=== PATIENT | female | born 2000 | race Two or more races ===

== ENCOUNTER 2020-06-23 08:04 | Inpatient (IN) | payer OTHER ==
[2020-06-23] MEDS ORDERED: DEXTROSE 5%-LACTATED RINGERS 500 ML IV ONE (10:15)
[2020-06-23] MEDS: DEXTROSE 5%-LACTATED RINGERS 500 ML IV SCH (10:45)
[2020-06-23 11:01] LABS: EPI CELLS >36 /uL (0-25.1); HYALINE CASTS 4 /uL (0-3.1); PH,URINE 6.5 (5.0-8.0); URINE APPEARANCE CLOUDY; URINE BACTERIA 62 /uL (0-1359); URINE BILIRUBIN NEGATIVE (NEGATIVE); URINE COLOR YELLOW; URINE GLUCOSE (UA) NEGATIVE (NEGATIVE); URINE KETONE NEGATIVE (NEGATIVE); URINE LEUK ESTERASE TRACE (NEGATIVE); URINE NITRITE NEGATIVE (NEGATIVE); URINE PROTEIN 3+ (NEGATIVE); URINE RBC 116 /uL (0-23.9); URINE UROBILINOGEN 0.2 mg/dL (0.2-1.0); URINE WBC 393 /uL (0-25.8)
[2020-06-23] MEDS ORDERED: CEFTRIAXONE 2 GM in DEXTROSE 5%-WATER 100 ML IVPB ONE (11:45)
[2020-06-23 12:32] VITALS: BMI 28.1
[2020-06-23 13:29] LABS: BASO % 0.3 % (0-2.0); EOS % 0.4 % (0-4.5); HEMOGLOBIN 10.6 GM/dL (10.7-15.3); LYMPH % 13.7 % (8-40); MCH 24.7 pg (25.7-33.7); MCHC 33.1 g/dl (32.0-36.0); MEAN CELL VOLUME 74.7 fl (80-96); MEAN PLT VOLUME 9.6 fl (7.5-11.1); MONO % 5.7 % (3.8-10.2); NEUT % 79.9 % (42.8-82.8); PLATELET COUNT 166 K/MM3 (134-434); RBC 4.28 M/mm3 (3.60-5.2); RDW 18.6 % (11.6-15.6); WHITE BLOOD COUNT 8.7 K/mm3 (4.0-10.0)
[2020-06-23 13:38] LABS: INR 0.97 (0.83-1.09); PROTHROMBIN TIME (PATIENT) 11.4 SEC (9.7-13.0)
[2020-06-23 13:41] LABS: ACTIVATED PTT 26.7 SECONDS (25.2-36.5)
[2020-06-23 13:53] LABS: BLOOD UREA NITROGEN 6.6 mg/dL (7-18); CALCIUM 8.4 mg/dL (8.5-10.1); CREATININE 0.7 mg/dL (0.55-1.3); POTASSIUM 3.9 mmol/L (3.5-5.1)
--- NOTE | 2020-06-23 15:24 | HP ---
Past Medical History - Primary Care Physician PCP:: Bubba Beach - Admission Chief Complaint: Lower abdominal and flank pain of a day duration. Frequency, pain and burning during urination of 2 day duration History of Present Illness: 19 yo , KIERA 07/16/20, EGA 36 + weeks with above complaints History of recurrent UTI, on macrobid prophylaxis and sonographic evidence of bilateral hydronephrosis She was for a urologic evaluation today, History Source: Patient Limitations to Obtaining History: No Limitations - Past Medical History Renal/: Yes: UTI ...: 1 ...Para: 0 ...Term: 0 ...: 0 ...Spon : 0 ...Induced : 0 ...Living Children: 0 ...Multiple Gestation: 0 ...LMP: 10/10/19 ... Weeks Gestation by Dates: 36.5 ...EDC by Dates: 07/16/20 - Past Surgical History Hx Myomectomy: No Hx Transabdominal Cerclage: No - Smoking History Smoking history: Never smoked - Alcohol/Substance Use Hx Alcohol Use: No History of Substance Use: reports: None - Social History Usual Living Arrangement: Yes: With Significant Other Do you think of yourself as: Straight/Heterosexual History of Recent Travel: No Home Medications - Allergies Allergies/Adverse Reactions: Allergies Allergy/AdvReac Type Severity Reaction Status Date / Time No Known Allergies Allergy Verified 06/23/20 08:55 - Home Medications Home Medications: Ambulatory Orders Ferrous Sulfate [Iron] 325 mg PO BID 06/23/20 Nitrofurantoin Monohyd/M-Cryst [Macrobid -] 1 tab PO DAILY 06/23/20 Vitamins (Sjr) - 1 tab PO DAILY 06/23/20 Family Medical History Family Hx Renal Disease: Father Review of Systems - Review of Systems Constitutional: reports: No Symptoms Eyes: reports: No Symptoms HENT: reports: No Symptoms Neck: reports: No Symptoms Cardiovascular: reports: No Symptoms Respiratory: reports: No Symptoms Gastrointestinal: reports: No Symptoms Genitourinary: reports: Flank Pain, Frequency, Pain Breasts: reports: No Symptoms Reported Musculoskeletal: reports: No Symptoms Integumentary: reports: No Symptoms Neurological: reports: No Symptoms Endocrine: reports: No Symptoms Hematology/Lymphatic: reports: No Symptoms Psychiatric: reports: No Symptoms Physical Exam - Maternity Vital Signs: Vital Signs Temperature 98.5 F 06/23/20 12:20 Pulse Rate 96 H 06/23/20 12:20 Respiratory Rate 17 06/23/20 12:20 Blood Pressure 119/80 06/23/20 12:20 O2 Sat by Pulse Oximetry (%) Constitutional: Yes: Well Nourished Eyes: Yes: WNL HENT: Yes: WNL Neck: Yes: WNL Cardiovascular: Yes: WNL Lungs: Clear to auscultation - Abdominal Exam/OB Fundal Height: 36 Number of Fetuses: Single Presentation: Breech Contractions: Yes Regularity: Irritability Intensity: Unaware Monitor Mode: External Heart Rate (range): 140 Heart Rate Location: [facility] Category: I Accelerations: Uniform Decelerations: None - Vaginal Exam/OB Vaginal Bleeding: No Speculum Exam: No Dilatation (cm): 0 Effacement (%): 0 Amniotic Membrane Status: Intact Presentation: Full/Complete Breech Station: -3 - Physical Exam Musculoskeletal: Yes: WNL Extremities: Yes: WNL Edema: No Integumentary: Yes: WNL ...Motor Strength: WNL Psychiatric: Yes: WNL - Labs Lab Results: CBC, BMP 06/23/20 13:09 06/23/20 13:09 Hemorrhage Risk Assessment - Risk Factors Medium Risk Factors: Yes: None High Risk Factors: Yes: None Risk Score: 1 Risk Level: Medium Risk Problem List - Problems (1) 36 weeks gestation of Code(s): Z3A.36 - 36 WEEKS GESTATION OF (2) Complicated UTI (urinary tract infection) Code(s): N39.0 - URINARY TRACT INFECTION, SITE NOT SPECIFIED (3) UTI (urinary tract infection) in in third trimester Code(s): O23.43 - UNSP INFCT OF URINARY TRACT IN , THIRD TRIMESTER Assessment/Plan Late gestation with complicated UTI Admit to L and D for management Will transfer to Antepartum floor when stabilized.
[2020-06-23] MEDS ORDERED: SODIUM CHLORIDE 1,000 ML IV SCH (17:00)
[2020-06-23] MEDS ORDERED: ACETAMINOPHEN 325 MG TABLET (FP) PO PRN (17:33)
[2020-06-23] MEDS: PRENATAL VITAMINS W/ FOLIC ACID TABLET (FP) PO SCH (18:22)
[2020-06-24] MEDS: DEXTROSE 5%-LACTATED RINGERS 500 ML IV SCH ×2 (04:45→15:30)
[2020-06-24 08:37] LABS: BILIRUBIN,TOTAL 0.3 mg/dL (0.2-1); BLOOD UREA NITROGEN 6.7 mg/dL (7-18); CALCIUM 8.6 mg/dL (8.5-10.1); CREATININE 0.7 mg/dL (0.55-1.3); POTASSIUM 3.9 mmol/L (3.5-5.1); TOT PROT 6.2 g/dl (6.4-8.2)
[2020-06-24] MEDS ORDERED: CEFTRIAXONE 1 GM in DEXTROSE 5%-WATER - 50 ML IVPB SCH (10:00)
--- NOTE | 2020-06-24 10:03 | PN ---
Progress Note (short form) - Note Progress Note: patient seen this am, asked to modify frequency of antibiotic by primary manager ob
[2020-06-24] MEDS ORDERED: cefTRIAXone SODIUM 1 GM VIAL ONE (10:38)
[2020-06-24] MEDS ORDERED: DEXTROSE 5%-WATER - 50 ML IVPB ONE (10:39)
[2020-06-24] MEDS: PRENATAL VITAMINS W/ FOLIC ACID TABLET (FP) PO SCH (10:47)
[2020-06-24] MEDS: CEFTRIAXONE 1 GM in DEXTROSE 5%-WATER - 50 ML IVPB SCH (10:51)
--- NOTE | 2020-06-24 12:39 | CON.GU ---
Consult Consult Specialty:: Referred by:: Yong Reason for Consultation:: complicated UTI - History of Present Illness Chief Complaint: flank and abd pain, dysuria, ur frequency History of Present Illness: 19 yo , KIERA 07/16/20, EGA 36 + weeks p/w dysuria, frequency, flank and a lower abd pain. History of recurrent UTI, on macrobid prophylaxis and sonographic evidence of bilateral hydronephrosis She was for a urologic evaluation today - History Source History Provided By: Patient, Medical Record Limitations to Obtaining History: No Limitations - Past Medical History Renal/: Yes: UTI - Alcohol/Substance Use Hx Alcohol Use: No History of Substance Use: reports: None - Smoking History Smoking history: Never smoked - Social History History of Recent Travel: No Home Medications - Allergies Allergies/Adverse Reactions: Allergies Allergy/AdvReac Type Severity Reaction Status Date / Time No Known Allergies Allergy Verified 06/23/20 08:55 - Home Medications Home Medications: Ambulatory Orders Ferrous Sulfate [Iron] 325 mg PO BID 06/23/20 Nitrofurantoin Monohyd/M-Cryst [Macrobid -] 1 tab PO DAILY 06/23/20 Vitamins (Sjr) - 1 tab PO DAILY 06/23/20 Family Medical History Family History: Denies Family Hx Renal Disease: Father Physical Exam- Vital Signs: Vital Signs Temperature 98.1 F 06/24/20 04:53 Pulse Rate 78 06/24/20 04:53 Respiratory Rate 17 06/24/20 04:53 Blood Pressure 120/72 06/24/20 04:53 O2 Sat by Pulse Oximetry (%) 97 06/24/20 04:53 Constitutional: Yes: Well Nourished, No Distress, Calm Gastrointestinal: Yes: WNL, Normal Bowel Sounds, Soft Renal/: Yes: WNL. No: Bladder Distention, CVA Tenderness - Left, CVA Tenderness - Right, [place] Present, Hematuria Kidneys: Yes: Flank Pain Left, FLank Pain Right Labs: CBC, BMP 06/23/20 13:09 06/24/20 06:53 Imaging - Results Ultrasound: Report Reviewed Problem List - Problems (1) Hydronephrosis Code(s): N13.30 - UNSPECIFIED HYDRONEPHROSIS Qualifiers: Hydronephrosis type: other Qualified Code(s): N13.39 - Other hydronephrosis (2) 36 weeks gestation of Code(s): Z3A.36 - 36 WEEKS GESTATION OF (3) Complicated UTI (urinary tract infection) Assessment/Plan: ur cx, cont rocephin, await urine cx, change to PO Code(s): N39.0 - URINARY TRACT INFECTION, SITE NOT SPECIFIED (4) UTI (urinary tract infection) in in third trimester Code(s): O23.43 - UNSP INFCT OF URINARY TRACT IN , THIRD TRIMESTER
--- NOTE | 2020-06-24 13:35 | CON.NEP ---
Consult Consult Specialty:: Nephrology Referred by:: OB Reason for Consultation:: Hydronephrosis - History of Present Illness Chief Complaint: Dysuria History of Present Illness: This is a 19 year old woman with no significant past medical history currently at 37 weeks gestation who presented with symptomatic urinary tract infection and found to have bilateral hydronephrosis. Seen and examined at the bedside. She reports having 2 urinary tract infections throughout her . One was symptomatic, the other was asymptomatic. She denies any history of kidney stones. She currently has no flank pain. She is making urine. No leg swelling. - History Source History Provided By: Patient Limitations to Obtaining History: No Limitations - Past Medical History Renal/: Yes: UTI - Alcohol/Substance Use Hx Alcohol Use: No History of Substance Use: reports: None - Smoking History Smoking history: Never smoked - Social History History of Recent Travel: No Home Medications - Allergies Allergies/Adverse Reactions: Allergies Allergy/AdvReac Type Severity Reaction Status Date / Time No Known Allergies Allergy Verified 06/23/20 08:55 - Home Medications Home Medications: Ambulatory Orders Ferrous Sulfate [Iron] 325 mg PO BID 06/23/20 Nitrofurantoin Monohyd/M-Cryst [Macrobid -] 1 tab PO DAILY 06/23/20 Vitamins (Sjr) - 1 tab PO DAILY 06/23/20 Family Medical History Family History: Denies Family Hx Renal Disease: Father Review of Systems - Review of Systems Constitutional: reports: No Symptoms Eyes: reports: No Symptoms HENT: reports: No Symptoms Neck: reports: No Symptoms Cardiovascular: reports: No Symptoms Respiratory: reports: No Symptoms Gastrointestinal: reports: No Symptoms Genitourinary: reports: Dysuria Musculoskeletal: reports: No Symptoms Integumentary: reports: No Symptoms Neurological: reports: No Symptoms Nephrology Consult - Height Height: 5 ft 7 in - Weight Weight: 81.647 kg - BMI Body Mass Index (BMI): 28.1 - Lab Results CBC,BMP: CBC, BMP 06/23/20 13:09 06/24/20 06:53 Anion Gap: Anion Gap Anion Gap 7 MMOL/L (8-16) L 06/24/20 06:53 - Imaging Ultrasound: Report Reviewed - Physical Examination Vital Signs: Vital Signs Temperature 98.1 F 06/24/20 04:53 Pulse Rate 78 06/24/20 04:53 Respiratory Rate 17 06/24/20 04:53 Blood Pressure 120/72 06/24/20 04:53 O2 Sat by Pulse Oximetry (%) 97 06/24/20 04:53 Constitutional: Yes: No Distress, Calm HENT: Yes: Atraumatic Neck: Yes: Supple Cardiovascular: Yes: Regular Rate and Rhythm Respiratory: Yes: Regular Gastrointestinal: Yes: Soft Extremities: No: Cold, Cool, Cyanosis Edema: No Neurological: Yes: Alert Assessment/Plan 19 year old woman with no significant past medical history currently at 37 weeks gestation who presented with symptomatic urinary tract infection and found to have bilateral hydronephrosis. 1. Bilateral hydronephrosis/Physiologic hydronephrosis of kidney 2. Symptomatic urinary tract infection 3. 37 weeks gestation Renal function is within normal limits indicating that there is no functional obstruction. Unlikely she will require intervention at this time. Urology consulted, input appreciated. Would expect hydronephrosis to resolve after delivery. Continue empiric antibiotics as per OB for UTI/Cystitis. Follow up cultures and convert to oral antibiotics when cultures are resulted. OB follow up. Discharge planning as per OB> Thank you Balwinder Cosme DO
--- NOTE | 2020-06-24 18:25 | PN ---
Progress Note (short form) - Note Progress Note: Patient transferred from [facility] for observation In no acute distress Back pain improved per patient low back and lower abdominal pain 2/10, No abdominal pain Vs wnl Abdomen gravid, non tender FHR- 140, moderate variability, positive accelerations, no decelerations, cat1 [place]- occasional VE- closed/long posterior, no active bleeding,very minimal amount of blood on gloves, A/P- IUP@ 36w6d, breech presentation, complicated UTI continue observation Regular diet for dinner will transfer to maternity
[2020-06-24 19:06] LABS: 24 HR URINE CREATININE 1643.2 mg/24hr (600-1800)
[2020-06-25] MEDS: DEXTROSE 5%-LACTATED RINGERS 500 ML IV SCH (05:51)
[2020-06-25] MEDS ORDERED: cefTRIAXone SODIUM 1 GM VIAL ONE (09:12)
[2020-06-25] MEDS ORDERED: DEXTROSE 5%-WATER - 50 ML IVPB ONE (09:12)
[2020-06-25] MEDS: PRENATAL VITAMINS W/ FOLIC ACID TABLET (FP) PO SCH (09:40)
[2020-06-25] MEDS: CEFTRIAXONE 1 GM in DEXTROSE 5%-WATER - 50 ML IVPB SCH (09:40)
--- NOTE | 2020-06-25 11:19 | PD.OB.PROG ---
Past Medical History - Primary Care Physician PCP:: Bubba Beach Documenting Provider Type: Laborist - Admission Chief Complaint: called by PMD re this term antepartum pt who had routine nst today w uc's noted on it. asked to see her and do ve. hx: admitted for uti. has had uc's on nsts since admission. cat 1 tracing. History of Present Illness: patient states feels mild cramps past few days. dysuria improving. no other complaints at this time. History Source: Patient - Nursing Documentation Maternal Triage Index: Maternal Triage Index ( Priority 4, Non-urgent MFTI) Maternal Triage Index ( Priority 4, Non-urgent MFTI) Nursing Documentation Reviewed: Yes - Past Medical History ...: 1 ...Para: 0 ...Term: 0 ...: 0 ...Spon : 0 ...Induced : 0 ...Living Children: 0 ...Multiple Gestation: 0 ...LMP: 10/10/19 ... Weeks Gestation by Dates: 36.5 ...EDC by Dates: 07/16/20 - Smoking History Smoking history: Never smoked - Alcohol/Substance Use Hx Alcohol Use: No History of Substance Use: reports: None - Social History History of Recent Travel: No Physical Exam - Obstetrical Vital Signs: Vital Signs Temperature 98.7 F 06/25/20 06:00 Pulse Rate 73 06/25/20 06:00 Respiratory Rate 18 06/25/20 06:00 Blood Pressure 112/68 06/25/20 06:00 O2 Sat by Pulse Oximetry (%) 98 06/24/20 22:00 - Labs Lab Results: CBC, BMP 06/23/20 13:09 06/24/20 06:53 Assessment/Plan P0 iup at term w uti uc's noted on nst prior nst similar cervical exam l/c/p no change abd: soft, nt, d. gravid case d/w Dr. Beach requests iv fluid bolus at this time will come to see pt. further mgmt per pmd.
--- NOTE | 2020-06-25 20:19 | PN ---
Progress Note (short form) - Note Progress Note: Patient comfortable in bed. No complaints today VSS, afebrile EFM - Baseline 140/min, moderate variability, accelerations, no decelerations [place] - irregular Pelvic - closed/long/posterior Plan - Early term gestation admitted with complicated UTI and bilateral hydronephrosis Urine culture showed no growth Renal sonogram excluded any calculi and confirmed the hydronephrosis Patient was evaluated by programming engineer and urologist and cleared to be discharged. Discharge home on the macrobid prophylaxis and to follow up at clinic on 06/27/20. Labor precautions given Problem List - Problems (1) 36 weeks gestation of Code(s): Z3A.36 - 36 WEEKS GESTATION OF (2) Complicated UTI (urinary tract infection) Code(s): N39.0 - URINARY TRACT INFECTION, SITE NOT SPECIFIED (3) UTI (urinary tract infection) in in third trimester Code(s): O23.43 - UNSP INFCT OF URINARY TRACT IN , THIRD TRIMESTER
[2020-06-26 09:20] VITALS: BP 132/84; PULSE 75; TEMP 98.8
== END 2020-06-26 09:05 | disposition home or self-care (01) | DRG 566 ==
LOC: JDEL 08:04 → JLDR 11:20 → J3W 15:36 → JLDR 06-24 15:23 → J3W 06-24 21:40
PROVIDERS: ADMIT Obstetrics & Gynecology; ATTEND Obstetrics & Gynecology
DX: O23.43 Unspecified infection of urinary tract in pregnancy, third trimester (principal); N13.30 Unspecified hydronephrosis; Z87.440 Personal history of urinary (tract) infections; Z3A.36 36 weeks gestation of pregnancy
CPT/HCPCS: 36415; 76775-TC; 80048; 80053; 81003; 82575; 84156; 85025; 85610; 85730; 86780; 86850; 86900; 86901; 87086; U0003

== ENCOUNTER 2020-07-18 09:23 | Inpatient (IN) | payer OTHER ==
[2020-07-18] MEDS ORDERED: AMPICILLIN SODIUM 2 GM VIAL ONE (10:04)
[2020-07-18] MEDS ORDERED: BUTORPHANOL TARTRATE 2 MG/ML VIAL IVPB ONE (10:15)
[2020-07-18] MEDS ORDERED: AMPICILLIN - 2 GM in SODIUM CHLORIDE 100 ML IVPB ONE (10:15)
[2020-07-18] MEDS: ELECTROLYTE-148 SOLN 1,000 ML IV SCH (10:15)
[2020-07-18] MEDS ORDERED: PROMETHAZINE HCL 25 MG/1 ML VIAL IVPB ONE (10:15)
[2020-07-18] MEDS ORDERED: BUTORPHANOL TARTRATE 2 MG/ML VIAL ONE (10:32)
[2020-07-18] MEDS ORDERED: PROMETHAZINE HCL 25 MG/1 ML VIAL ONE (10:32)
[2020-07-18 10:46] VITALS: BMI 30.5
[2020-07-18 11:49] LABS: BASO % 0.5 % (0-2.0); EOS % 0.1 % (0-4.5); HEMATOCRIT 37.9 % (32.4-45.2); HEMOGLOBIN 12.6 GM/dL (10.7-15.3); LYMPH % 12.2 % (8-40); MCH 25.7 pg (25.7-33.7); MCHC 33.4 g/dl (32.0-36.0); MEAN CELL VOLUME 77.1 fl (80-96); MEAN PLT VOLUME 10.9 fl (7.5-11.1); MONO % 4.2 % (3.8-10.2); PLATELET COUNT 139 K/MM3 (134-434); RBC 4.92 M/mm3 (3.60-5.2); RDW 19.6 % (11.6-15.6); WHITE BLOOD COUNT 11.5 K/mm3 (4.0-10.0)
[2020-07-18 11:50] LABS: RETICULOCYTES 1.02 % (0.5-1.5)
[2020-07-18 12:14] LABS: POTASSIUM 4.2 mmol/L (3.5-5.1)
[2020-07-18 12:15] LABS: GAMMA GLUTAMYL TRANSPEPTIDASE 9 U/L (5-85)
[2020-07-18 12:16] LABS: BLOOD UREA NITROGEN 9.1 mg/dL (7-18); CALCIUM 9.6 mg/dL (8.5-10.1)
[2020-07-18 12:17] LABS: SGOT/AST 15 U/L (15-37); SGPT/ALT 13 U/L (13-61)
[2020-07-18] MEDS ORDERED: PCA PUMP NR ONE (12:18)
[2020-07-18] MEDS ORDERED: FENTANYL/BUPIVACAINE/NS/PF - PCEA - 50 ML DISP.SYRIN EP ONE ×2 (12:18→16:38)
[2020-07-18 12:19] LABS: CREATININE 0.7 mg/dL (0.55-1.3); INR 0.89 (0.83-1.09); URIC ACID 6.4 mg/dL (2.6-7.2)
[2020-07-18 12:22] LABS: ACTIVATED PTT 26.1 SECONDS (25.2-36.5)
[2020-07-18] MEDS ORDERED: BUPIVACAINE HCL/PF 0.25% (2.5MG/ML) 10 ML VIAL ONE (12:23)
[2020-07-18] MEDS: FENTANYL/BUPIVACAINE/NS/PF - PCEA - 50 ML DISP.SYRIN EP SCH (12:45)
[2020-07-18] MEDS ORDERED: NALOXONE HCL 0.4 MG/ML VIAL IVPUSH PRN (12:48)
[2020-07-18 14:31] LABS: EPI CELLS 8 /uL (0-25.1); HYALINE CASTS 0 /uL (0-3.1); PH,URINE 6.5 (5.0-8.0); URINE APPEARANCE CLEAR; URINE BACTERIA 7 /uL (0-1359); URINE BILIRUBIN NEGATIVE (NEGATIVE); URINE COLOR YELLOW; URINE GLUCOSE (UA) NEGATIVE (NEGATIVE); URINE KETONE NEGATIVE (NEGATIVE); URINE LEUK ESTERASE NEGATIVE (NEGATIVE); URINE NITRITE NEGATIVE (NEGATIVE); URINE PROTEIN 1+ (NEGATIVE); URINE RBC 4 /uL (0-23.9); URINE UROBILINOGEN 0.2 mg/dL (0.2-1.0); URINE WBC 8 /uL (0-25.8)
[2020-07-18] MEDS ORDERED: AMPICILLIN SODIUM 1 GM VIAL ONE ×2 (14:33→18:13)
[2020-07-18] MEDS: AMPICILLIN - 1 GM in SODIUM CHLORIDE 100 ML IVPB SCH ×2 (14:40→18:15)
[2020-07-18] MEDS: OXYTOCIN 30 UNITS in 0.9% NS 30 UNIT/500 ML INFUS.BAG IVPB SCH (15:00)
[2020-07-18 15:07] LABS: HIV INTERPRETATION NEGATIVE (NEGATIVE)
[2020-07-18] MEDS ORDERED: LABETALOL HCL 5 MG/1 ML (200MG/40ML VIAL) IVPB ONE (15:59)
[2020-07-18] MEDS ORDERED: LABETALOL HCL 5 MG/1 ML (100MG/20 ML VIAL) IVPB ONE (16:15)
[2020-07-18] MEDS ORDERED: OXYTOCIN 20 UNITS in 0.9% NS 20 UNIT/1,000 ML INFUS.BAG IV ONE ×2 (18:29→23:28)
[2020-07-18] MEDS ORDERED: LIDOCAINE HCL 1% PRESERVATIVE FREE - 30ML VIAL ONE (18:29)
[2020-07-18] MEDS: OXYTOCIN 20 UNITS in 0.9% NS 20 UNIT/1,000 ML INFUS.BAG IV SCH (19:05)
[2020-07-18] MEDS ORDERED: ceFAZolin 2 GRAM PREMIX BAG IVPB ONE (19:10)
[2020-07-18] MEDS ORDERED: CEFAZOLIN 2 GM/D5W 2 GM/50 ML ML IVPB ONE (19:11)
[2020-07-18 20:23] LABS: CORD HCO3 23.8 mmHg (20-29); CORD PCO2 66.9 mmHg (30-78); CORD pH 7.169 (7.14-7.44)
[2020-07-18 20:25] LABS: CORD BASE EXCESS -4.2 mmol/L (0-2); CORD HCO3 21.7 mmHg (20-29); CORD PCO2 42.7 mmHg (30-78); CORD pH 7.324 (7.14-7.44)
[2020-07-18] MEDS ORDERED: BENZOCAINE 28 GM HEMORRHOIDAL OINTMENT TP PRN (20:32)
[2020-07-18] MEDS ORDERED: WITCH HAZEL 50% (TUCKS) 40 PAD/JAR PAD TP PRN (20:32)
[2020-07-18] MEDS ORDERED: BENZOCAINE 20% 57 GM BOTTLE TP PRN (20:32)
[2020-07-18] MEDS ORDERED: METHYLERGONOVINE MALEATE 0.2 MG/1 ML AMP IM PRN (20:32)
[2020-07-18] MEDS ORDERED: ACETAMINOPHEN 325 MG TABLET (FP) ONE (20:54)
[2020-07-18] MEDS ORDERED: IBUPROFEN 600 MG TABLET (FP) PO ONE (20:54)
[2020-07-18] MEDS: ACETAMINOPHEN 325 MG TABLET (FP) PO PRN (20:55)
[2020-07-18] MEDS: IBUPROFEN 600 MG TABLET (FP) PO PRN (20:55)
[2020-07-18] MEDS ORDERED: MAGNESIUM 4GM/H20 - 4 GM/100 ML IVPB IVPB ONE (23:25)
[2020-07-18] MEDS ORDERED: MAGNESIUM 4GM/H20 - 4 GM/100 ML IVPB IVPB SCH (23:30)
[2020-07-19] MEDS ORDERED: MAGNESIUM SULFATE 20GM/500ML - 20 GM/500 ML INFUS.BAG ONE ×2 (00:08→10:14)
[2020-07-19] MEDS: CEFAZOLIN 1 GM/D5W 1 GM/50 ML BAG IVPB SCH ×3 (02:15→18:05)
[2020-07-19] MEDS ORDERED: ceFAZolin SODIUM 1 GM VIAL ONE ×2 (02:17→09:51)
[2020-07-19 08:24] LABS: POC NITRAZINE POS
[2020-07-19 09:08] LABS: BASO % 0.3 % (0-2.0); EOS % 0.3 % (0-4.5); HEMATOCRIT 31.6 % (32.4-45.2); HEMOGLOBIN 10.6 GM/dL (10.7-15.3); LYMPH % 15.9 % (8-40); MCHC 33.4 g/dl (32.0-36.0); MEAN CELL VOLUME 78.1 fl (80-96); MONO % 5.8 % (3.8-10.2); NEUT % 77.7 % (42.8-82.8); PLATELET COUNT 126 K/MM3 (134-434); RBC 4.05 M/mm3 (3.60-5.2); RDW 19.5 % (11.6-15.6); WHITE BLOOD COUNT 12.6 K/mm3 (4.0-10.0)
[2020-07-19] MEDS ORDERED: CEFAZOLIN 1 GM/D5W 1 GM/50 ML BAG ONE ×2 (09:50→17:57)
[2020-07-19] MEDS: PRENATAL VITAMINS W/ FOLIC ACID TABLET (FP) PO SCH (10:00)
[2020-07-19] MEDS: DOCUSATE SODIUM 100 MG CAPSULE (FP) PO SCH (10:00)
[2020-07-19] MEDS: FERROUS SO4 325 MG TABLET (FP) PO SCH (10:00)
[2020-07-19] MEDS ORDERED: IBUPROFEN 600 MG TABLET (FP) PO ONE (10:05)
[2020-07-19] MEDS: ACETAMINOPHEN 325 MG TABLET (FP) PO PRN ×2 (10:05→21:58)
[2020-07-19] MEDS ORDERED: ACETAMINOPHEN 325 MG TABLET (FP) ONE (10:05)
[2020-07-19] MEDS: IBUPROFEN 600 MG TABLET (FP) PO PRN ×2 (10:05→21:59)
[2020-07-19] MEDS: MAGNESIUM SULFATE 20GM/500ML - 20 GM/500 ML INFUS.BAG IVPB SCH ×2 (10:15)
[2020-07-19] MEDS: OXYTOCIN 20 UNITS in 0.9% NS 20 UNIT/1,000 ML INFUS.BAG IV SCH (16:00)
[2020-07-19] MEDS ORDERED: OXYTOCIN 20 UNITS in 0.9% NS 20 UNIT/1,000 ML INFUS.BAG IV ONE (16:01)
[2020-07-19] MEDS: FENTANYL/BUPIVACAINE/NS/PF - PCEA - 50 ML DISP.SYRIN EP SCH (16:58)
[2020-07-19] MEDS: OXYTOCIN 30 UNITS in 0.9% NS 30 UNIT/500 ML INFUS.BAG IVPB SCH (16:59)
[2020-07-19] MEDS: ELECTROLYTE-148 SOLN 1,000 ML IV SCH (17:00)
[2020-07-19] MEDS ORDERED: SENNOSIDES/DOCUSATE COMBO (SENNA PLUS) TABLET (UD) PO PRN (22:00)
[2020-07-20] MEDS: ACETAMINOPHEN 325 MG TABLET (FP) PO PRN ×2 (06:33→17:48)
[2020-07-20] MEDS: IBUPROFEN 600 MG TABLET (FP) PO PRN ×2 (06:34→17:47)
[2020-07-20] MEDS ORDERED: FLU VACCINE (FLULAVAL) PF 60 MCG/0.5 ML SYRINGE 2020-2021 IM ONE (10:00)
[2020-07-20] MEDS ORDERED: DIPHTH,PERTUSS(ACELL),TET 0.5 ML DISP.SYRIN IM ONE (10:00)
[2020-07-20] MEDS: DOCUSATE SODIUM 100 MG CAPSULE (FP) PO SCH (10:27)
[2020-07-20] MEDS: FERROUS SO4 325 MG TABLET (FP) PO SCH (10:27)
[2020-07-20] MEDS: PRENATAL VITAMINS W/ FOLIC ACID TABLET (FP) PO SCH (10:28)
[2020-07-20] MEDS: ELECTROLYTE-148 SOLN 1,000 ML IV SCH (17:39)
[2020-07-21] MEDS ORDERED: DEXTROSE 5%-LACTATED RINGERS 1,000 ML IV SCH (07:38)
[2020-07-21] MEDS: PRENATAL VITAMINS W/ FOLIC ACID TABLET (FP) PO SCH (09:58)
[2020-07-21] MEDS: DOCUSATE SODIUM 100 MG CAPSULE (FP) PO SCH (09:58)
[2020-07-21] MEDS: FERROUS SO4 325 MG TABLET (FP) PO SCH (09:58)
[2020-07-21] MEDS ORDERED: MIDAZOLAM HCL 2 MG/2 ML SINGLE DOSE VIAL ONE (11:52)
[2020-07-21] MEDS ORDERED: ceFAZolin SODIUM 1 GM VIAL ONE (12:21)
[2020-07-21] MEDS ORDERED: ceFAZolin SODIUM 1 GM VIAL IVPB ONE (12:27)
[2020-07-21] MEDS ORDERED: oxyCODONE HCL 5 MG TABLET PO PRN (14:29)
[2020-07-21] MEDS: CEFAZOLIN 1 GM/D5W 1 GM/50 ML BAG IVPB SCH (17:48)
[2020-07-21] MEDS: ACETAMINOPHEN 325 MG TABLET (FP) PO PRN (20:08)
[2020-07-21] MEDS: IBUPROFEN 600 MG TABLET (FP) PO PRN (20:10)
[2020-07-22] MEDS: CEFAZOLIN 1 GM/D5W 1 GM/50 ML BAG IVPB SCH ×3 (01:14→09:42)
[2020-07-22] MEDS: ACETAMINOPHEN 325 MG TABLET (FP) PO PRN (06:36)
[2020-07-22] MEDS: IBUPROFEN 600 MG TABLET (FP) PO PRN (06:36)
[2020-07-22] MEDS: PRENATAL VITAMINS W/ FOLIC ACID TABLET (FP) PO SCH (10:31)
[2020-07-22] MEDS: FERROUS SO4 325 MG TABLET (FP) PO SCH (10:31)
[2020-07-22] MEDS: DOCUSATE SODIUM 100 MG CAPSULE (FP) PO SCH (10:31)
[2020-07-22 14:38] VITALS: BP 145/87; PULSE 87; TEMP 98.4
== END 2020-07-22 13:35 | disposition home or self-care (01) | DRG 560 ==
LOC: JLDR 09:23 → J3W 07-19 20:45
PROVIDERS: ADMIT Obstetrics & Gynecology; ATTEND Obstetrics & Gynecology
PROC: 0W8NXZZ Division of Female Perineum, External Approach (ICD-10-PCS; principal; 2020-07-18)
PROC: 10E0XZZ Delivery of Products of Conception, External Approach (ICD-10-PCS; 2020-07-18)
PROC: 0UQMXZZ Repair Vulva, External Approach (ICD-10-PCS; 2020-07-18)
DX: O48.0 Post-term pregnancy (principal); O90.89 Other complications of the puerperium, not elsewhere classified; O71.82 Other specified trauma to perineum and vulva; Z3A.40 40 weeks gestation of pregnancy; Z37.0 Single live birth; Z87.440 Personal history of urinary (tract) infections; Z86.69 Personal history of other diseases of the nervous system and sense organs
CPT/HCPCS: 36415; 36600; 59409; 80048; 81003; 82803; 82977; 83010; 83735; 83986-QW; 84450; 84460; 84550; 85025; 85032; 85045; 85610; 85730; 86780; 86850; 86900; 86901; 87389; 90715; 94760; C9803; G0008; Q2036; U0003

== ENCOUNTER 2024-06-22 04:52 | Day surgery (SDC) | payer OTHER ==
[2024-06-10 15:16] VITALS: BMI 29.0
[2024-06-22] MEDS ORDERED: ONDANSETRON 4 MG/2 ML VIAL ONE ×2 (12:45→17:02)
[2024-06-22] MEDS ORDERED: SUCCINYLCHOLINE CHLORIDE 200 MG/10 ML SYRINGE ONE (12:45)
[2024-06-22] MEDS ORDERED: METOCLOPRAMIDE HCL INJECTION 10 MG/2 ML VIAL ONE (12:45)
[2024-06-22] MEDS ORDERED: DEXAMETHASONE SOD PHOSPHATE 4 MG/1 ML VIAL ONE (12:45)
[2024-06-22] MEDS ORDERED: LIDOCAINE HCL/PF 2% SDV 5ML VIAL ONE (12:45)
[2024-06-22] MEDS ORDERED: ACETAMINOPHEN INJECTION 100 ML ONE (12:49)
[2024-06-22] MEDS ORDERED: PHENYLEPHRINE HCL 10 MG/1 ML SINGLE DOSE VIAL ONE (12:50)
[2024-06-22] MEDS ORDERED: KETOROLAC TROMETHAMINE 30 MG/1 ML VIAL ONE (13:04)
[2024-06-22] MEDS ORDERED: MIDAZOLAM HCL 2 MG/2 ML SINGLE DOSE VIAL ONE (13:07)
[2024-06-22] MEDS ORDERED: PROPOFOL 20 ML ONE (13:31)
[2024-06-22] MEDS ORDERED: SUGAMMADEX SODIUM 200 MG/2 ML VIAL ONE ×2 (14:14→14:15)
[2024-06-22] MEDS ORDERED: LACTATED RINGERS SOLUTION 1,000 ML IV SCH (14:45)
[2024-06-22 16:35] VITALS: RESP 20; TEMP 97.8
[2024-06-22] MEDS: ONDANSETRON 4 MG/2 ML VIAL IVPUSH PRN (17:01)
[2024-06-22 18:09] VITALS: BP 118/72; PULSE 85
== END 2024-06-22 18:02 | disposition home or self-care (01) ==
LOC: JASU-SURG 04:52
PROVIDERS: ATTEND Obstetrics & Gynecology
PROC: 0UB54ZZ Excision of Right Fallopian Tube, Percutaneous Endoscopic Approach (ICD-10-PCS; principal; 2024-06-22 11:45)
DX: N83.8 Other noninflammatory disorders of ovary, fallopian tube and broad ligament (principal); N70.11 Chronic salpingitis
CPT/HCPCS: 81025; 88304-TC; 94760; J0131